=== PATIENT | female | born 1940 | race Caucasian/White ===

== ENCOUNTER 2022-08-20 17:34 | Emergency (ER) | payer BC, SELFPAY ==
[2022-08-20 17:52] VITALS: BP 206/82; PULSE 71; RESP 18; TEMP 36.4; O2SAT 100
--- NOTE | 2022-08-20 18:41 | PC.NURSE ---
pt states she has to take her home since he is diabetic. states will come back tomorrow for evaluation.
== END 2022-08-20 18:41 | disposition left against medical advice (07) ==
PROVIDERS: PCP Internal Medicine
DX: S89.92XA Unspecified injury of left lower leg, initial encounter (principal); W19.XXXA Unspecified fall, initial encounter
CPT/HCPCS: 99199

== ENCOUNTER 2023-12-20 12:18 | Outpatient (CLI) | payer BC, SELFPAY ==
--- NOTE | ~2023-12-20 | US_ITS ---
EXAMINATION: US venous doppler [facility] DATE: 12/20/2023 13:10 INDICATION: Lower limb swelling TECHNIQUE: Grayscale ultrasound images without and with compression and Doppler ultrasound images of the bilateral lower extremity veins were obtained. COMPARISON: None. FINDINGS: The visualized portions of right common femoral vein, profunda (deep) femoral vein, femoral vein, pop liteal vein, posterior tibial veins, peroneal veins, gastrocnemius vein and greater saphenous vein ou tflow are patent. The visualized portions of left common femoral vein, profunda femoral vein, femoral vein, popliteal v ein, posterior tibial veins, peroneal veins, gastrocnemius vein and greater saphenous vein outflow ar e patent. IMPRESSION: 1. No deep venous thrombosis in either lower limb. Reviewed, dictated and finalized at location A.
== END 2023-12-20 12:19 | disposition home or self-care (01) ==
LOC: ANHIMG 12:31
PROVIDERS: PCP Family Medicine; Visit Provider Nurse Practitioner
DX: M25.471 Effusion, right ankle (principal); M25.472 Effusion, left ankle
CPT/HCPCS: 93970

== ENCOUNTER 2024-08-14 09:38 | Outpatient (CLI) | payer BC, SELFPAY ==
[2024-08-14 10:27] LABS: Add Urine Microscopic? NO; Appearance Urine Clear (Clear); Bilirubin Urine Negative (Negative); Blood Urine Negative (Negative); Color Urine Yellow (Yellow); Glucose Urine UA Negative (Negative); Ketones Urine Negative (Negative); Leukocyte Esterase Ur Negative LEU/UL (Negative); Nitrate Urine Negative (Negative); Protein Urine Negative (Negative); Specific Grav Ur 1.009 (1.001-1.035); Urobilinogen Urine 0.2 mg/dL (<2.0)
--- OUTSIDE RECORDS SUMMARY | 2024-08-14 10:31 | XMS_ITS | Clinical Summary ---
Author Organization [facility] Facility Address [address] [place] [address] Care Team Providers Care Halver Machine Operator Name Role Phone Oral Melton MD Primary Care Provider [phone] Allergies Active Allergy Reactions Criticality Noted Date Comments Sulfa Antibiotics Other (see comments) 02/16/20 19 Sulfabenzamide 02/15/2019 Sulfanilamide Hives,Rash Low 02/15/2019 Reaction: Hives, Skin Rash, Tramadol Other (see comments) 11/07/2018 Medications OMEPRAZOLE PO Take 1 tablet by mouth 1 (one) time each day Active fosinopril (MONOPRIL) 10 MG tablet Take 1 tablet by mouth 1 (one) time each day Active hydroxychloroqui ne (PLAQUENIL) 200 MG tablet Take 1 tablet by mouth 1 (one) time each day Active Choline Fenofibrate (FENOFIBRIC ACID) 135 MG capsule delayed-release Take 1 capsule by mouth 1 (one) time each day Active Active Problems Problem Noted Date Diagnosed Date Chronic kidney disease stage 2 02/15/2019 Chronic kidney disease stage 3 02/15/2019 Essential hypertension 02/15/2019 Essential hypertension 02/15/2019 Hypercalcemia 02/15/2019 Immunizations Name Administration Dates Next Due Pneumococcal Conjugate 13-Valent 08/03/2017 Family History Medical History Relation Comments Diabetes Mother 2 Stroke Mother 2 Relation Status Comments Father Mother 1 Mother 2 Social History Tobacco Use Types Packs/Day Years Used Date Smoking Tobacco: Never Smokeless Tobacco: Never Alcohol Use Standard Drinks/Week Comments No 0 (1 standard drink = 0.6 oz pur e alcohol) AUDIT-C Answer Date Recorded Frequency of Alcohol Consumption Never 04/08/2020 Average Number of Drinks Not on file 020 Frequency of Binge Drinking Not on file 12/2019 Comments Unknown Sex and Gender Information Value Date Recorded Sex Assigned at Not on file Legal Sex Female 6:09 PM EDT Gender Identity Not on file Sexual Orientation Not on file Last Filed Vital Signs Vital Sign Reading Time Taken Comments Blood Pressure 140/78 04/08/2020 10:28 AM CDT Pulse 77 04/08/2020 10:28 AM CDT Temperature 36.2 C (97.1 F) 04/08/2020 10:28 AM CDT Respiratory Rate 18 09/27/2018 11:00 AM CDT Oxygen Saturation 99% 04/08/2020 10:28 AM CDT Inhaled Oxygen Concentration - - Weight 66.9 kg (147 lb 8 oz) 04/08/2020 10:28 AM CDT Height 154.9 cm (5' 1 ) 04/08/2020 10:28 AM CDT Body Mass Index 27.87 04/08/2020 10:28 AM CDT Plan of Treatment Health Maintenance Due Date Last Done Comments Pneumococcal Vaccine: 65+ Ye ars (2 of 2 - PPSV23 or PCV20) 09/28/2017 08/03/2017 Influenza Vaccine (#1) 2024 Hepatitis B Vaccine Aged Out No longe r eligible based on patient's age to complete this topic Insurance [place] Care Teams Halver Machine Operator Relationship Specialty Start Date End Date Oral Melton MD [address] [place] [address] PCP - General Internal Medicine 04/11/19
--- OUTSIDE RECORDS SUMMARY | 2024-08-14 10:31 | XMS_ITS ---
Author Organization [facility] Address [address] [place], [place] [address] Care Team Providers Care Maintenance Specialist Name Role Phone SHANA JUSTINA Unavailable [phone] Answer, Declined Unavailable Unavailable Allergies No Known Allergies REASON FOR VISIT Swollen ft w/ spot Medications Medication SIG (Take, Route, Fr equency, Duration) Notes Start Date End Date Status Fosinopril Sodium Ac tive Omeprazole Active Tylenol Active Fenofibrate Active hydroCHLOROthiazide Active Social History Tobacco Use: Social History Observation Description Date Details (start date - stop date) Smoker, current status unknown NA - NA Tobacco Use/Smoking Question Answer Notes Tobacco use: Smoker current status unknown Vital Signs Height 62 in 09/09/2023 Weight 120 lbs 09/09/2023 BMI 21.95 kg/m2 09/09/2023 Height-cm 157.48 cm 09/09/2023 Weight-kg 54.43 kg 09/09/2023 Encounters Encounter Location Date Provider Diagnosis [facility] [place] [address] [place], [place] [id number] 09/09/2023 JUSTINA MATHIS Fungal infection of nail B35.1 ; Pain in right toe(s) M79.674 ; Pain in left toe(s) M79.675 ; Unspecified atherosclerosis of [place] arteries of extremities, bilateral legs I70.203 and Acquired keratoderma L85.1 Assessments Encounter Date Diagnosis (ICD Code) Assessment Notes Treatment Notes Treatment Clinical Notes Section Notes 09/09/2023 Fungal infection of nail (ICD-10 - B35.1) 09/09/2023 Pain in right toe(s) (ICD-10 - M79.674) 09/09/2023 Pain in left toe(s) (ICD-10 - M79.675) 09/09/2023 Unspecified atherosclerosis of [place] arteries of extremities, bilateral legs (ICD-10 - I70.203) 09/09/2023 Acquired keratoderma (ICD-10 - L85.1) 09/09/2023 Other Nails 1-5 Bilateral were debrided extensively with nail nippers and emery board, reducing length and girth to pink healthy tissue with any subungual debris and necrotic tissue removed All corns or calluses, as described in the note above, were cut and pared utilizing a #15 blade Plan Of Treatment Treatment Notes Assessment Notes Other Nails 1-5 Bilateral were debrided extensively with nail nippers and emery board, reducing length and girth to pink healthy tissue with any subungual debris and necrotic tissue removed All corns or calluses, as described in the note above, were cut and pared utilizing a #15 blade Next Appt Details Follow Up: 9 weeks, Reason: Progress Notes * Magdalena MERCADODOB:1938 (85 yo F)Acc No.[id number]:09/09/2023 Progress Notes Patient: Magdalena PHELAN Provider: Hollie Mathis DPM :1938 A ge:85 Y S ex:Female Date:09/09/2023 Address:[address] [place] [address] Subjective: * Chief Complaints: * 1 . Swollen ft w/ spot. * HPI: H PI: New Complaint P atient presents for a new patient consultation., Patient complains of an issue to possible corns on the bottom bilateral sides of the right foot. Duration of problem is 1 month. The patient states she experiences pain when sitting and standing. The patient has been applying Neosporin, and it has been helping. Patient denies any injury.,, MA: EJ . * ROS: G eneral / Constitutional: Patient denies c hange in appetite, fatigue, chills, fever.? C ardiovascular: Chest pain d enies. N eurologic: Loss of use of extremity d enies. * Medical History: * Surgical History: b rain surgery . * Social History: T obacco Use: T obacco Use/Smoking T obacco use: Navarro mckinney current status unknown D rugs/Alcohol: D o you drink alcohol?: No. * Medications: T aking hydroCHLOROthiazide , Taking Fosinopril Sodium , Taking Fenofibrate , Taking Tylenol , Taking Omeprazole * Allergies: N .K.D.A. Objective: * Vitals: S hoe Size: 62, Wt: 120 lbs, Wt-k.43 kg, Ht: 62 in, Ht-cm: 157.48 cm, BMI: 21.95 Index, Body Surface Area: 1.54. * Examination: P hysical Examination: Gen: T he patient is awake, alert, well developed, well groomed and well nourished. They are in no apparent distress. . Musc: F oot structure is normal bilateral. Muscle strength is 5/5 to all joints bilaterally. There is no pain on palpation. . Derm: T here is absent hair growth on bilateral feet. There are pigmentary changes of bilateral foot. The skin color is red. The skin texture is thin and shiny. Distal cooling noted in bilateral feet. Nails are thick, discolored, and dystrophic with subungual debris. They are painful to palpation. Hyperkeratotic lesions noted: sub 1st and 5th MTH radha. Neuro: G rossly intact to light touch bilateral . Vasc: P osterior tibialis pulse 0/4 bilaterally. Dorsalis pedis pulse 0/4 bilaterally. No edema noted. Capillary fill time > 3 seconds to all digits. . Assessment: * Assessment: 1. F ungal infection of nail - B35.1 (Primary) 2 . P ain in right toe(s) - M79.674 3 . P ain in left toe(s) - M79.675 4 . U nspecified atherosclerosis of [place] arteries of extremities, bilateral legs - I70.203 5 . A cquired keratoderma - L85.1 Plan: * Treatment: * Procedure Codes: 1 1056 TRIM SKIN LESIONS, 2 TO 4, Modifiers: Q8 , 97671 DEBRIDE NAIL, 6 OR MORE, Modifiers: 59 , Q8 * Follow Up: 9 weeks * Billing Information: * Visit Code: 32327 Office Visit, New Pt., Level 3. Modifiers: 25 * Procedure Codes: 07996 TRIM SKIN LESIONS, 2 TO 4. Modifiers: Q8 59933 DEBRIDE NAIL, 6 OR MORE. Modifiers: 59, Q8 * Sign off status: Completed true * Provider: Hollie Mathis DPM Date: 0 09/09/2023 Generated for Angel salcido/Yris/Glenda on: 0 08/14/2024 10:31 AM TROLLEY CAR OVERHAULER History and Physical Notes * HPI (History of Present Illness) Category Sub-Category Detail Notes Category Not es HPI New Complaint Patient presents for a new patient consultation., Patient complains of an issue to possible corns on the bottom bilateral sides of the right foot. Duration of problem is 1 month. The patient states she experiences pain when sitting and standing. The patient has been applying Neosporin, and it has been helping. Patient denies any injury.,, MA: EJ Examination Category Sub-Category Detail Notes Category Not es Physical Examination Gen: The patient is awake, alert, well developed, well groomed and well nourished. They are in no apparent distress. Vasc: Posterior tibialis p ulse 0/4 bilaterally. Dorsalis pedis pulse 0/4 bilaterally. No edema noted. Capillary fill time > 3 seconds to all digits. Neuro: Grossly intact to li ght touch bilateral Musc: Foot structure is no rmal bilateral. Muscle strength is 5/5 to all joints bilaterally. There is no pain on palpation. Derm: There is absent hair growth on bilateral feet. There are pigmentary changes of bilateral foot. The skin color is red. The skin texture is thin and shiny. Distal cooling noted in bilateral feet. Nails are thick, discolored, and dystrophic with subungual debris. They are painful to palpation. Hyperkeratotic lesions noted: sub 1st and 5th MTH radha
--- OUTSIDE RECORDS SUMMARY | 2024-08-14 10:31 | XMS_ITS ---
Author Organization [facility] Address [address] [place], [place] [address] Care Team Providers Care Senior Information Systems Architect Name Role Phone JUSTINA MATHIS Unavailable [phone] Answer, Declined Unavailable Unavailable REASON FOR VISIT went to wrong location Encounters Encounter Location Date Provider Diagnosis [facility] [address] [facility] [address] [place], [place] [id number] 01/13/2024 JUSTINA MATHIS Plan Of Treatment No Information Progress Notes * Magdalena MERCADODOB:1938 (85 yo F)Acc No.[id number]:01/13/2024 Patient: Per PHELANia Provider: Hollie Mathis DPM :1938 A ge:85 Y S ex:Female Date:01/13/2024 Address:[address] [place], [place] [address] Subjective: * Chief Complaints: * 1 . Went to wrong location. * Medical History: Objective: * Vitals: Assessment: Plan: * Treatment: * Billing Information: * Visit Code: * Procedure Codes: * Electronic signature of JUSTINA MATHIS DPM on 08/14/2024 at 10:31 AM CRIME ANALYST Sign off status: Pending * Provider: Hollie Mathis DPM Date: 01/13/2024 Generated for Angel salcido/Yris/Glenda on: 08/14/2024 10:31 AM CRIME ANALYST
--- OUTSIDE RECORDS SUMMARY | 2024-08-14 10:31 | XMS_ITS | Patient Health Record ---
Author Organization [facility] Address [address] [place], [place] [address] Care Team Providers Care Offc Spec Name Role Phone JUSTINA SALDANA Unavailable [phone] Answer, Declined Unavailable Unavailable Allergies No Known Allergies Reason For Referral No Information Medications Medication SIG (Take, Route, Fr equency, Duration) Notes Start Date End Date Status Fosinopril Sodium Ac tive Omeprazole Active Tylenol Active Fenofibrate Active hydroCHLOROthiazide Active Social History Tobacco Use: Social History Observation Description Date Details (start date - stop date) Smoker, current status unknown NA - NA Tobacco Use/Smoking Question Answer Notes Tobacco use: Smoker current status unknown Vital Signs Height-cm 157.48 cm 09/09/2023 Weight-kg 54.43 kg 09/09/2023 Height 62 in 09/09/2023 Weight 120 lbs 09/09/2023 BMI 21.95 kg/m2 09/09/2023 Encounters Encounter Location Date Provider Diagnosis [facility] [place] [address] [address] [place], [place] [id number] 09/09/2023 JUSTINA SALDANA Fungal infection of nail B35.1 ; Pain in right toe(s) M79.674 ; Pain in left toe(s) M79.675 ; Unspecified atherosclerosis of [place] arteries of extremities, bilateral legs I70.203 and Acquired keratoderma L85.1 Assessments Encounter Date Diagnosis (ICD Code) Assessment Notes Treatment Notes Treatment Clinical Notes Section Notes 09/09/2023 Pain in right toe(s) (ICD-10 - M79.674) 09/09/2023 Fungal infection of nail (ICD-10 - B35.1) 09/09/2023 Pain in left toe(s) (ICD-10 - M79.675) 09/09/2023 Unspecified atherosclerosis of [place] arteries of extremities, bilateral legs (ICD-10 - [...] utilizing a #15 blade Plan Of Treatment No Information Insurance Providers Payer Name Payer Address Payer Phone Subscriber Number Group Number Insured Name Patient Relationship to Insured Coverage Start Date Coverage End Date [facility] ([facility] ATTN CLAIMS [address] [place] [address] [id number] Magdalena Mercado Self - patient is the insured 6 Medical (General) History Surgical History Surgery Date(Month/Year) brain surgery
--- OUTSIDE RECORDS SUMMARY | 2024-08-14 10:31 | XMS_ITS | Clinical Summary ---
Author Organization [facility] Address [facility] [place] [address] Care Team Providers Care Millinery Blocker Name Role Phone Geronimo Mixon MD Primary Care Provider [phone] Allergies Active Allergy Reactions Criticality Noted Date Comments Sulfabenzamide Sulfanilamide Hives,Rash Reaction: Hives, Skin Rash, Medications joezdfmr-qgma-a in-folic acid (ONE DAILY FOR WOMEN) 18-0.4 mg tablet [The details of the medication are not available because there are pending changes by a home health clinician.] 0 3 Active Additional Information Patient taking differently: 1 tablet oral Daily, Indications: supplement, Reported on 07/24/2020 omeprazole (PriLOSEC) 20 mg capsule take 1 capsule by oral route every day before a meal 30 3 4 Active fenofibrate choline (TRILIPIX) 135 mg capsule take 1 capsule by oral route every day 0 0 3 Active fosinopril (MONOPRIL) 20 mg tablet take 1 tablet by oral route every day 0 0 3 Active acetaminophen (TYLENOL) 325 mg tablet take 1 tablet by oral route every 4 hours as needed 0 0 3 Active hydroxychloroqu ine (PLAQUENIL) 200 mg tabletIndicatio ns:Systemic lupus erythematosus, unspecified SLE type, unspecified organ involvement status (HCC) Take 1 tablet (200 mg total) by mouth daily. 90 tablet 3 8 Active oxyCODONE (ROXICODONE) 5 mg immediate release tabletIndicatio ns:Pain Take 1 tablet (5 mg total) by mouth every 4 (four) hours as needed for pain 30 tablet 1 Active levETIRAcetam (KEPPRA) 500 mg tabletIndicatio ns:Seizures Take 1 tablet (500 mg total) by mouth 2 (two) times a day for 12 doses 12 tablet 1 Active polyethylene glycol (MIRALAX) 17 gram packetIndicatio ns:constipation Take 1 packet (17 g total) by mouth daily as needed for constipation 1 Active Active Problems Problem Noted Date Diagnosed Date SDH (subdural hematoma) 07/15/2020 Overview (07/17/2020): Added automatically from request for surgery [id number] Immunizations Name Administration Dates Next Due Pneumococcal Conjugate PCV 13 08/03/2017 Surgical History Surgery Date Site/Laterality Comments DISCECTOMY discectomy SECTION 1970 delivery SECTION 1965 section Medical History Medical History Date Comments Hx Other Medical 1964 PCOS Hyperlipidemia Hyperlipidemia Hypertension Hypertension Gastroesophageal reflux disease GERD Systemic lupus erythematosus (CMS/HCC) (HCC) CKD (chronic kidney disease) Fall 06/28/2020 Subdural hematoma (HCC) Hiatal hernia Family History Medical History Relation Name Comments Diabetes Other 1 Family history of Diabetes mellitus; Hyperlipidemia Other 2 Family histor y of Hyperlipidemia; Hypertension Other 3 Family history of Hypertension; Hypothyroidism Other 4 Family histor y of Hypothyroidism; Stroke Other 5 Family history of Stroke; Cancer Other 6 Family history of Cancer; Fibromyalgia Other 7 Family history of Fibromyalgia; Heart disease Other 8 Family history of Heart disease; Relation Name Status Comments Other 1 Other 2 Other 3 Other 4 Other 5 Other 6 Other 7 Other 8 Social History Tobacco Use Types Packs/Day Years Used Date Smoking Tobacco: Never Smokeless Tobacco: Never Comments No Sex and Gender Information Value Date Recorded Sex Assigned at Not on file Legal Sex Female [address] 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 Gender Identity Not on file Sexual Orientation Not on file Obstetrics History Last Filed Vital Signs Vital Sign Reading Time Taken Comments Blood Pressure 175/90 09/26/2020 10:40 PM CDT Pulse 85 09/26/2020 10:40 PM CDT Temperature 36.4 C (97.6 F) 09/30/2020 8:26 AM CDT denies fever Respiratory Rate 16 09/26/2020 5:55 PM CDT Oxygen Saturation 97% 09/26/2020 10:40 PM CDT Inhaled Oxygen Concentration - - Weight 64 kg (141 lb) 09/26/2020 5:55 PM CDT Height 154.9 cm (5' 1 ) 09/26/2020 5:55 PM CDT Body Mass Index 26.64 09/26/2020 5:55 PM CDT Plan of Treatment Not on file Medical Devices Implanted Type Area Retail Stocker Device Identifier Shelf Expiration Date Model / Serial / Lot [place] Craniomaxillofacial [id number] [place] Neuro 3 1.5mm 4mm Self Drill Axial Stability Screw Bone Latex Free - [id number] Implanted:Qty: 9 on 07/18/2020 by Irving Soto MD PhD at [facility] [employer] Craniomaxillofacial [id number] / / [place] Craniomaxillofacial [id number] [place] Neuro Iii 14mmx.4mm Low Profile Shunt Tab - [id number] Implanted:Qty: 1 on 07/18/2020 by Irving Soto MD PhD at [facility] [employer] Craniomaxillofacial [id number] / / [employer] Craniomaxillofacial [id number] [place] Neuro Iii 16mmx.4mm 2 Hole Low Profile Bar - [id number] Implanted:Qty: 1 on 07/18/2020 [facility] [id number] / / Insurance [employer] [facility] Address: [address] [place] [address] MEDICARE [employer] [place] [employer] [place] MEDICARE [facility] Advance Directives For more information, please contact: [phone] * Full Code (Latest Code Status on File) Date Activated Date Inactivated Comments 07/16/2020 11:33 PM 07/22/2020 4:25 PM Care Teams Millinery Blocker Relationship Specialty Start Date End Date Geronimo Mixon MD PCP - General Internal Medicine 07/07/17
--- OUTSIDE RECORDS SUMMARY | 2024-08-14 10:31 | XMS_ITS | CONTINUITY OF CARE DOCUMENT ---
Author Name deirdre gilmore Address Unknown Organization [facility] Address [address] [place] [address] [address] [place] [address] Phone [phone] Care Team Providers Care Certified Substance Abuse Counselor Name Role Phone MICHELE FIGUEROA MD Unavailable [phone] INSURANCE PROVIDERS Payer name Policy type / Coverage type [place] red green party ID [facility] [id number]
--- OUTSIDE RECORDS SUMMARY | 2024-08-14 10:31 | XMS_ITS | Referral Summary ---
Author Organization [facility] Address [address] [place] [address] Care Team Providers Care Central Processing Technician Name Role Phone Geronimo Mixon MD Primary Care Provider [phone] Allergies Active Allergy Reactions Criticality Noted Date Comments Sulfabenzamide Sulfanilamide Hives,Rash Reaction: Hives, Skin Rash, Medications yahleeav-raug-z in-folic acid (ONE DAILY FOR WOMEN) 18-0.4 [...] (07/17/2020): Added automatically from request for surgery [id number] Immunizations Name Administration Dates Next Due Pneumococcal Conjugate PCV 13 08/03/2017 Social History Tobacco Use Types Packs/Day Years Used Date Smoking Tobacco: Never Smokeless Tobacco: Never Comments No Sex and Gender Information Value Date Recorded Sex Assigned at Not on file Legal Sex Female 7:01 PM ADMISSIONS 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 Gender Identity Not on file Sexual Orientation [...] on file Medical Devices Implanted Type Area Trans Router Device Identifier Shelf Expiration Date Model / Serial / Lot [employer] Craniomaxillofacial [id number] [place] Neuro 3 1.5mm 4mm Self Drill Axial Stability Screw Bone Latex Free - [id number] Implanted:Qty: 9 on 07/18/2020 by Irving Soto MD PhD at [facility] [employer] Craniomaxillofacial [id number] / / [place] Craniomaxillofacial [id number] [place] Neuro Iii 14mmx.4mm Low Profile Shunt Tab - [id number] Implanted:Qty: 1 on 07/18/2020 [facility] [id number] / / [place] Craniomaxillofacial [id number] [place] Neuro Iii 16mmx.4mm 2 Hole Low Profile Bar - [id number] Implanted:Qty: 1 on 07/18/2020 [facility] [id number] / / Insurance Member Subscriber Plan / Payer ( fective 2015-Present) Name:Magdalena Mercado Relation to Subscriber:Spouse Name:Harinder Mercado Date of :1940 (Home) Address: [address] [place] [address] Payer ID:[id number] (NAIC) Group ID:[id number] Type:[employer] Address: [address] [place]ARE [employer] [place] [employer] [place] MED[place]ARE [facility] Advance Directives For more information, please contact: [phone] * Full Code (Latest Code Status on File) Date Activated Date Inactivated Comments 07/16/2020 11:33 PM 07/22/2020 4:25 PM Care Teams Central Processing Technician Relationship Specialty Start Date End Date Geronimo Mixon MD PCP - General Internal Medicine 07/07/17
[2024-08-14 10:36] LABS: Alanine Aminotransferase 19 U/L (6-35); Albumin Level 4.4 g/dL (3.5-5.1); Alkaline Phosphatase 72 U/L (38-126); Anion Gap 8 mmol/L (4-12); Aspartate Amino Transferase 27 U/L (14-36); Bilirubin,Total 0.7 mg/dL (0.2-1.3); Blood Urea Nitrogen 30 mg/dL (7-17); Calcium 10.2 mg/dL (8.4-10.2); Carbon Dioxide 27 mmol/L (22-30); Chloride 109 mmol/L (98-107); Cholesterol 184 mg/dL (0-200); Estimated Glomerular Filt Rate 41; Glucose 79 mg/dL (65-110); HDL Direct 82 mg/dL; Potassium 3.8 mmol/L (3.4-5.0); Sodium 144 mmol/L (137-145); Triglycerides 77 mg/dL (<150)
[2024-08-14 10:37] LABS: Hemoglobin A1C 5.5 % (<5.7)
[2024-08-14 10:38] LABS: Basophils Absolute Auto 0.1 K/mm3 (0.0-0.1); Basophils Percent Auto 1.3 % (0.2-1.2); Eosinophils Absolute Auto 0.3 K/mm3 (0-0.3); Eosinophils Percent Auto 4.9 % (0-4.4); Hematocrit 40.5 % (37.0-47.0); Hemoglobin 12.8 g/dL (12.0-15.0); Immature Granulocyte Absolute 0.03 K/mm3 (0.00-0.031); Immature Granulocyte Percent A 0.5 % (0-0.5); Lymphocytes Absolute Auto 1.51 K/mm3 (0.9-3.2); Lymphocytes Percent Auto 27.4 % (18.3-44.2); Mean Corpuscular HGB Conc 31.6 g/dl (32-36); Mean Corpuscular Hemoglobin 28.4 pg (26-34); Mean Platelet Volume 10.1 fl (7.4-10.4); Monocytes Absolute Auto 0.4 K/mm3 (0.1-0.6); Monocytes Percent Auto 6.5 % (2.6-8.5); Neutrophils Absolute Auto 3.3 K/mm3 (1.3-6.7); Neutrophils Percent Auto 59.4 % (45.5-73.1); Platelet Count Result 242 k/mm3 (150-375); Red Cell Distribution Width 14.6 % (11.5-14.5); White Blood Count 5.5 K/mm3 (4.5-10.0)
[2024-08-14 10:49] LABS: LDL Cholesterol Direct 92 mg/dL
[2024-08-14 10:58] LABS: Vitamin D 25 Hydroxy 32.2 ng/mL
[2024-08-14 11:43] LABS: Folic Acid 5.4 ng/mL (2.76->20)
== END 2024-08-14 09:39 | disposition home or self-care (01) ==
PROVIDERS: PCP Family Medicine; Visit Provider Nurse Practitioner
DX: K21.9 Gastro-esophageal reflux disease without esophagitis (principal); Z00.00 Encounter for general adult medical examination without abnormal findings; Z83.3 Family history of diabetes mellitus; I10 Essential (primary) hypertension
CPT/HCPCS: 36415; 80053; 80061; 81003; 82306; 82607; 82746; 83036; 84443; 85025